=== PATIENT | female | born 1990 | race Caucasian/White ===

== ENCOUNTER 2023-08-15 11:00 | Emergency (ER) | payer OTHER ==
[2023-08-15 11:14] VITALS: TEMP 98.7; BMI 31.4
[2023-08-15 12:18] LABS: BASO % 0.4 % (0-2.0); EOS % 5.8 % (0-4.5); HEMATOCRIT 40.8 % (32.4-45.2); LYMPH % 26.5 % (8-40); MCH 27.9 pg (25.7-33.7); MCHC 34.4 g/dl (32.0-36.0); MEAN CELL VOLUME 81.1 fl (80-96); MEAN PLT VOLUME 7.9 fl (7.5-11.1); NEUT % 61.3 % (42.8-82.8); PLATELET COUNT 253 10^3/uL (134-434); RBC 5.03 M/mm3 (3.60-5.2); RDW 12.6 % (11.6-15.6); WHITE BLOOD COUNT 5.9 K/mm3 (4.0-10.0)
[2023-08-15 12:31] LABS: HCG,QUALITATIVE URINE Negative
[2023-08-15 12:35] LABS: POTASSIUM 4.2 mmol/L (3.5-5.1)
[2023-08-15 12:36] LABS: MAGNESIUM 2.1 mg/dL (1.8-2.4)
[2023-08-15 12:39] LABS: ALBUMIN 3.8 g/dl (3.4-5.0); CALCIUM 9.4 mg/dL (8.5-10.1)
[2023-08-15 12:40] LABS: BLOOD UREA NITROGEN 11.5 mg/dL (7-18)
[2023-08-15 12:44] LABS: TOT PROT 7.5 g/dl (6.4-8.2)
[2023-08-15 12:49] LABS: BILIRUBIN,TOTAL 0.8 mg/dL (0.2-1)
[2023-08-15] MEDS ORDERED: ACETAMINOPHEN INJECTION 100 ML IVPB ONE (12:55)
[2023-08-15] MEDS: ACETAMINOPHEN 1000 MG/100 ML BAG IVPB ONE (13:10)
[2023-08-15] MEDS: LACTATED RINGERS SOLUTION 1000 ML INFUS.BAG IV ONE (13:17)
[2023-08-15] MEDS ORDERED: MECLIZINE HCL 25 MG TABLET (FP) ONE (13:51)
[2023-08-15] MEDS: MECLIZINE HCL 25 MG TABLET (FP) PO ONE (13:54)
[2023-08-15 13:59] LABS: URINE APPEARANCE CLEAR; URINE BILIRUBIN NEGATIVE (NEGATIVE); URINE COLOR YELLOW; URINE GLUCOSE (UA) NEGATIVE (NEGATIVE); URINE KETONE NEGATIVE (NEGATIVE); URINE LEUK ESTERASE NEGATIVE (NEGATIVE); URINE NITRITE NEGATIVE (NEGATIVE); URINE PROTEIN NEGATIVE (NEGATIVE); URINE UROBILINOGEN 0.2 mg/dL (0.2-1.0)
[2023-08-15 15:57] VITALS: BP 120/75; PULSE 88; RESP 18
== END 2023-08-15 15:57 | disposition home or self-care (01) ==
LOC: JER 11:00
PROC: 3E033NZ Introduction of Analgesics, Hypnotics, Sedatives into Peripheral Vein, Percutaneous Approach (ICD-10-PCS; principal; 2023-08-15)
DX: R42 Dizziness and giddiness (principal); R53.81 Other malaise; R51.9 Headache, unspecified; R53.83 Other fatigue; R53.1 Weakness; Z20.822 Contact with and (suspected) exposure to COVID-19
CPT/HCPCS: 0241U-QW; 36415; 70450-TC; 80053; 81003; 83735; 84439; 84443; 84703; 85025; 93005; 93010; 99285-25; J0131